=== PATIENT | male | born 1990 | race Caucasian/White ===

== ENCOUNTER 2020-04-20 16:17 | Emergency (ER) | payer OTHER ==
[~2020-04-20] VITALS: Ht 172.7 cm; Wt 158.8 kg
[2020-04-20 16:38] VITALS: BP 141/93
--- NOTE | 2020-04-20 16:46 | NUR ---
WAIT AT LOBBY. HANDED ON URINE CUP.
--- NOTE | 2020-04-20 20:19 | NUR ---
LAB AT [facility].
--- NOTE | 2020-04-20 20:25 | NUR ---
30 Y/O MALE PRESENTED TO ED C/O CHEST PAIN X 5 DAYS THAT RADIATES TO BACK AND OCCASSIONALLY ABD. PT DESCRIBES PAIN PRESSURE ON CHEST, 5/10 ON PAIN SCALE. PT STATES HE HAS HAD THIS PAIN BEFORE. PT DENIES N/V/FEVER/BODY ACHES/ CHILLS. PT A/O X 4. RR EVEN AND UNLABORED. SKIN, PINK WARM AND INTACT. NO EDEMA NOTED. CAP REFILL < 3 SEC. PT RESTING IN BED, LOCKED AND IN LOWEST POSITION , HOB ELEVATED, SIDE DYER LX 2 FOR PT SAFETY. 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 NO ACUTE DISTRESS NOTED AT THIS TIME. PMH: HTN, DM - PT DOES NOT TAKE MEDICATIONS AT THIS TIME NKA
[2020-04-20 20:34] LABS: BASOPHILS # (AUTO) 0.1 K/uL (0.00-0.22); BASOPHILS % (AUTO) 1.1 % (0.0-2.0); EOSINOPHILS # (AUTO) 0.1 K/uL (0-0.4); HEMOGLOBIN 13.7 g/dL (12.0-18.0); LYMPHOCYTES # (AUTO) 2.2 K/uL (2.0-11.5); MEAN CORPUSCULAR HEMOGLOBIN 27 pg (27-31); MEAN CORPUSCULAR HGB CONC 33 g/dL (33-37); MEAN CORPUSCULAR VOLUME 82.2 fL (80-94); MONOCYTES # (AUTO) 0.6 K/uL (0.8-1.0); MONOCYTES % (AUTO) 5.5 % (1.7-9.3); NEUTROPHILS # (AUTO) 7.5 K/uL (1.8-7.7); NEUTROPHILS % (AUTO) 71.4 % (42.2-75.2); PLATELET COUNT (AUTO) 179 K/uL (140-450); RED BLOOD CELL COUNT(AUTO) 4.99 MIL/uL (4.20-6.10); WHITE BLOOD COUNT (AUTO) 10.5 K/uL (4.8-10.8)
[2020-04-20 21:01] LABS: CARBON DIOXIDE 25.9 mmol/L (21-32); POTASSIUM 3.9 mmol/L (3.5-5.1)
[2020-04-20 21:16] LABS: ALBUMIN 3.7 g/dL (3.4-5.0); TOTAL BILIRUBIN 0.4 mg/dL (0.0-1.0)
--- NOTE | 2020-04-20 21:25 | NUR ---
PT RESTING IN BED, LOCKED AND IN LOWEST POSITION ,HOB ELEVATED, SIDE RAIL X 1. VSS. NO ACUTE DISTRESS AT THIS TIME.
[2020-04-20 21:50] VITALS: BP 115/70
--- NOTE | 2020-04-20 21:50 | NUR ---
Patient discharged with v/s stable. Written and verbal after care instructions given and explained. Patient alert, oriented and verbalized understanding of instructions. Ambulatory with steady gait. All questions addressed prior to discharge. ID band removed. Patient advised to follow up with PMD. Rx of IBUPROFEN & FLEXERIL given. Patient educated on indication of medication including possible reaction and side effects. Opportunity to ask questions provided and answered.
== END 2020-04-20 21:50 | disposition home or self-care (01) ==
LOC: MED 16:17
DX: F41.9 Anxiety disorder, unspecified (principal); R07.2 Precordial pain; E11.9 Type 2 diabetes mellitus without complications
CPT/HCPCS: 36415; 71045; 80053; 84484; 85025; 93005; 99285